=== PATIENT | female | born 1970 | race African-American/Black ===

== ENCOUNTER 2018-01-30 19:33 | Emergency (ER) | payer MEDICARE ==
--- NOTE | 2018-01-30 20:21 | ED Physician Chart ---
ED Chief Complaint/HPI - Patient Information Date Seen:: 01/30/18 Time Seen:: 18:05 Chief Complaint:: low back pain, nausea and constipation History of Present Illness:: Patient's had low back pain, nausea and intermittent constipation for 2 weeks. No vomiting. Allergies:: Allergies Allergy/AdvReac Type Severity Reaction Status Date / Time morphine Allergy Verified 01/30/18 19:58 ondansetron Allergy Verified 01/30/18 19:58 [From Zofran (as hydrochloride)] Vitals:: Vital Signs - 8 hr 01/30/18 19:45 Temp 98.5 F HR 75 RR 18 BP 127/88 O2 Sat % 97 Historian:: Patient Review:: Nurse's Note Reviewed ED Review of Systems - Review of Systems General/Constitutional: No fever, No chills Skin: No skin lesions Head: No headache Eyes: No loss of vision ENT: No earache Neck: No neck pain, No swelling Cardio Vascular: No chest pain Pulmonary: No SOB GI: Nausea, No vomiting, No diarrhea G/U: No dysuria Musculoskeletal: Back pain Endocrine: No polyuria, No polydipsia Psychiatric: No prior psych history Hematopoietic: No bruising Allergic/Immuno: Urticaria Neurological: No syncope, No focal symptoms, No weakness Family Medical History - Family Member Grandmother Ethnicity: Non- Hx Family Diabetes: Yes ED Labs/Radiology/EKG Results - Lab Results Results: Laboratory Results - last 24 hr 01/30/18 01/30/18 20:16 21:00 WBC 6.0 RBC 3.38 L Hgb 10.4 L Hct 31.5 L MCV 93.2 MCH 30.8 MCHC Differential 33.1 RDW 13.1 Plt Count 142 L MPV 8.8 Neutrophils % 63.8 Lymphocytes % 26.3 Monocytes % 5.7 Eosinophils % 3.8 Basophils % 0.4 POC Ur Test Negative Laboratory Results - last 24 hr 01/30/18 01/30/18 01/30/18 20:16 20:16 20:17 WBC 6.0 RBC 3.38 L Hgb 10.4 L Hct 31.5 L MCV 93.2 MCH 30.8 MCHC Differential 33.1 RDW 13.1 Plt Count 142 L MPV 8.8 Neutrophils % 63.8 Lymphocytes % 26.3 Monocytes % 5.7 Eosinophils % 3.8 Basophils % 0.4 Sodium 136 Potassium 3.9 Chloride 108 H Carbon Dioxide 20.5 L Anion Gap 11.4 BUN 85 H* Creatinine 5.2 H* Est GFR ( Amer) 11.5 Est GFR (Non-Af Amer) 9.5 BUN/Creatinine Ratio 16.3 Glucose 90 Calcium 9.5 Lipase 84 H POC Ur Test 01/30/18 21:00 WBC RBC Hgb Hct MCV MCH MCHC Differential RDW Plt Count MPV Neutrophils % Lymphocytes % Monocytes % Eosinophils % Basophils % Sodium Potassium Chloride Carbon Dioxide Anion Gap BUN Creatinine Est GFR ( Amer) Est GFR (Non-Af Amer) BUN/Creatinine Ratio Glucose Calcium Lipase POC Ur Test Negative ED Assessment - Assessment General Assessment: I informed the patient that she has renal failure and must be admitted to hospital. However she refused admission. She also declined to have an EKG done. I explained to the patient that with renal failure the potassium can go high which can cause the heart to stop. I further told the patient that if she were to be admitted to the hospital a reversible cause of her renal failure might be found so that she would not have to go on dialysis. However patient still refused admission and signed out AGAINST MEDICAL ADVICE ED Septic Shock - . Is Septic Shock (SBP<90, OR Lactate>4 mmol\L) present?: No - <6hrs of presentation: Vital Signs: Vital Signs - 8 hr 01/30/18 19:45 Temp 98.5 F HR 75 RR 18 BP 127/88 O2 Sat % 97 ED Reassessment (Disposition) - Reassessment Reassessment Condition:: Unchanged - Diagnosis Diagnosis:: Renal failure; anemia - Patient Disposition Discharge/Transfer:: Against Medical Advice Condition at Disposition:: Stable, Unchanged
[2018-01-30 20:47] LABS: % BASOPHILS 0.4 % (0.0-2.0); % EOSINOPHILS 3.8 % (0.0-5.0); % LYMPHOCYTES 26.3 % (20.0-50.0); % MONOCYTES 5.7 % (2.0-10.0); % NEUTROPHILS 63.8 % (40.0-80.0); EOSINOPHILE ABSOLUTE 0.2 Th/cmm (0.1-0.4); HEMATOCRIT 31.5 % (41.0-60); HEMOGLOBIN 10.4 gm/dL (12-16); LYMPHOCYTE ABSOLUTE 1.6 Th/cmm (1.5-3.0); MEAN CELL VOLUME 93.2 fl (81-100); MEAN CORPUSCULAR HEMOGLOBIN 30.8 pg (27.0-31.0); MEAN CORPUSCULAR HGB CONC 33.1 pg (28.0-36.0); MEAN PLATELET VOLUME 8.8 fl; MONOCYTE ABSOLUTE 0.3 Th/cmm (0.3-1.0); NEUTROPHILE ABSOLUTE 3.9 Th/cmm (1.8-8.0); PLATELET COUNT 142 Th/cmm (150-400); RED BLOOD COUNT 3.38 Mil/cmm (3.80-5.10); RED CELL DISTRIBUTION WIDTH 13.1 % (11.5-20.0)
[2018-01-30 20:55] LABS: ANION GAP 11.4 (7.0-16.0); CALCIUM SERUM 9.5 mg/dL (8.6-10.3); CARBON DIOXIDE 20.5 mEq/L (21.0-31.0); GFR AFRICAN-AMERICAN 11.5 ml/min (>90); GFR NON AFRICAN-AMERICAN 9.5 ml/min; POTASSIUM SERUM 3.9 mEq/L (3.5-5.1)
[2018-01-30 21:24] LABS: CREATININE - SERUM 5.2 mg/dL (0.6-1.2)
[2018-01-31 00:15] LABS: URINE MICROSCOPIC INDICATED? YES; URINE SOURCE CLEAN C
[2018-01-31 00:34] LABS: URINE BILIRUBIN NEGATIVE (NEGATIVE); URINE BLOOD TRACE (NEGATIVE); URINE GLUCOSE (UA) NEGATIVE (NEGATIVE); URINE KETONE NEGATIVE (NEGATIVE); URINE LEUKOCYTE ESTERASE TRACE (NEGATIVE); URINE NITRATE NEGATIVE (NEGATIVE); URINE PROTEIN 100 mg/dL (NEGATIVE); URINE UROBILINOGEN 0.2 E.U./dL (0.2 - 1.0)
[2018-01-31 00:48] LABS: URINE CLARITY CLEAR (CLEAR); URINE COLOR YELLOW
[2018-01-31 00:54] LABS: URINE BACTERIA FEW /hpf (NONE SEEN); URINE EPITHELIAL CELLS FEW /lpf (FEW); URINE RBC 0-2 /hpf (0-5)
== END 2018-01-30 21:40 | disposition left against medical advice (07) ==
LOC: ER 19:33
DX: N19 Unspecified kidney failure (principal); D64.9 Anemia, unspecified
CPT/HCPCS: 36415-UA; 80048-TC; 81001-TC; 81025-TC; 83690-TC; 83735-TC; 85025-TC; Z7502